=== PATIENT | male | born 1955 | race Caucasian/White ===

== ENCOUNTER 2018-06-24 06:12 | Day surgery (SDC) | payer OTHER, BC ==
[2018-06-24] MEDS ORDERED: FENTAnyl 50 MCG/ML VIAL (08:41)
[2018-06-24] MEDS ORDERED: MIDAZOLAM 1 MG/ML 2 ML INJ ×2 (08:41)
== END 2018-06-24 10:47 | disposition home or self-care (01) ==
LOC: GIL 06:12
DX: Z12.11 Encounter for screening for malignant neoplasm of colon (principal); K64.8 Other hemorrhoids
CPT/HCPCS: 45378